=== PATIENT | male | born 1990 | race Caucasian/White ===

== ENCOUNTER 2017-11-12 19:15 | Emergency (ER) | payer BC, MEDICAID, OTHER ==
[~2017-11-12] VITALS: Ht 180.3 cm; Wt 97.5 kg
--- NOTE | 2017-11-12 20:10 | NUR ---
Dr Nunez into eval Patient
[2017-11-12] MEDS ORDERED: TDAP DIPH,PERTUSS,TET VAC/PF 0.5 ML DISP.SYRIN IM ONE ×2 (20:29→20:30)
[2017-11-12 20:36] VITALS: BP 142/75
--- NOTE | 2017-11-12 20:36 | NUR ---
Patient discharged to home in stable conditon. Written and verbal after care instructions given. Patient verbalizes understanding of instructions. Walked out of ER with no distress noted
== END 2017-11-12 20:37 | disposition home or self-care (01) ==
LOC: ER 19:22
DX: T63.441A Toxic effect of venom of bees, accidental (unintentional), initial encounter (principal); R22.42 Localized swelling, mass and lump, left lower limb; Y92.89 Other specified places as the place of occurrence of the external cause
CPT/HCPCS: 90715; A4663